=== PATIENT | male | born 1970 | race Caucasian/White ===

== ENCOUNTER 2020-11-01 08:05 | Emergency (ER) | payer OTHER, SELFPAY ==
--- NOTE | 2020-11-01 08:16 | ED.GENADULT ---
HPI - General Adult General Chief complaint: Upper Respiratory Infection Stated complaint: SWOLLEN NECK Time Seen by Provider: 11/01/20 08:16 Source: patient and RN notes reviewed Mode of arrival: ambulatory Limitations: no limitations History of Present Illness HPI narrative: 50-year-old male presents with complaints of sore throat and swelling to right side of neck and face for the past 2 days. Kai reports increase of throat pain and right side of face and neck swelling over the past 24 hours and pain with swallowing. Naproxen and Tylenol without relief. No high fevers, drooling, or throat swelling. Pain is bilateral. Hurts to swallow. Exacerbation factors consist of eating and drinking. No rhinorrhea or nasal congestion. No voice change. No nausea, vomiting, or abdominal pain. Tolerating liquids. Denies chills, dyspnea, difficulty swallowing, jaw pain, dental pain, foreign body sensation, and rash. Remains active. The patient reports he have not been diagnosed with COVID-19. The patient reports he is not waiting for the results of a COVID-19 lab test. The patient reports he do not have chills, weakness, or fatigue. The patient reports he do not have a new or worsening cough or shortness of breath. Denies chest pain. The patient reports he do not have any rhinorrhea, congestion, loss of taste or smell, nausea, vomiting, abdominal pain, and diarrhea. Denies recent traveling. Denies concerns for COVID-19 or exposures been home with limited outdoor exposure except for essential household needs and return home. At this time, patient is not suspected of having COVID-19. Some parts of this dictation were generated by voice recognition software and may contain typographical and/or grammatical inaccuracies. Related Data Home Medications Medication Instructions Recorded Confirmed aspirin [Adult Aspirin EC Low 81 mg PO DAILY 11/01/20 11/01/20 Strength] atorvastatin 40 mg PO DAILY 11/01/20 11/01/20 baclofen 10 mg PO DAILY 11/01/20 11/01/20 clopidogrel 75 mg PO DAILY 11/01/20 11/01/20 cyanocobalamin (vitamin B-12) 500 mcg PO DAILY 11/01/20 11/01/20 [Vitamin B-12] lisinopril-hydrochlorothiazide 1 tablet PO DAILY 11/01/20 11/01/20 Allergies Allergy/AdvReac Type Severity Reaction Status Date / Time No Known Allergies Allergy Mild Verified 11/01/20 08:10 Review of Systems Review of Systems: Narrative: CONSTITUTIONAL: Denies fever, chills, sweats. EYES: Denies visual changes, redness, discharge. ENT: Denies rhinorrhea, congestion, otalgia. Complains of sore throat, RT side facial and neck swelling. CARDIOVASCULAR: Denies chest pain, palpitations, edema. RESPIRATORY: Denies dyspnea, wheezing. cough. GASTROINTESTINAL: Denies abdominal pain, nausea, vomiting, diarrhea. GENITOURINARY: Denies dysuria, hematuria, abnormal discharge. SKIN: Denies rash or itching. MUSCULOSKELETAL: Denies acute back pain, joint pain, or myalgia. NEUROLOGIC: Denies numbness or focal weakness. PSYCHIATRIC: Denies anxiety or depression. All systems reviewed & are unremarkable except as noted in HPI and below. [facility] Past Medical History Medical History (Updated 11/05/20 @ 14:57 by DREW Flores) Ex-smoker for less than 1 year Hypercholesteremia Hypertension PVD (peripheral vascular disease) Stenosis of artery of left lower extremity Surgical History Surgical History (Updated 11/05/20 @ 14:56 by DREW Flores) History of vascular surgery LLE stent placement due to poor circulation 2 successful, 3rd attempted per Kai Family History Family History Mother Patient's mother is in good health Sibling Patient's sister is in good health Patient's brother is in good health Father Patient's father is Other Family history of lung cancer Social History Social History (Updated 11/01/20 @ 08:21 by DREW Flores) S
[2020-11-01 08:17] VITALS: BP 179/99; PULSE 135; RESP 22; TEMP 36.7; O2SAT 100
[2020-11-01] MEDS: KETOROLAC (*BKC) 60 MG/2 ML VIAL IM (08:56)
[2020-11-01 09:05] VITALS: BP 160/94; PULSE 120
== END 2020-11-01 09:27 | disposition home or self-care (01) ==
PROVIDERS: Emergency Provider Nurse Practitioner Family; PCP Internal Medicine Gastroenterology
DX: K04.7 Periapical abscess without sinus (principal); K01.1 Impacted teeth; Z87.891 Personal history of nicotine dependence; E78.00 Pure hypercholesterolemia, unspecified; I10 Essential (primary) hypertension; I25.10 Atherosclerotic heart disease of native coronary artery without angina pectoris; Z95.5 Presence of coronary angioplasty implant and graft
CPT/HCPCS: 87081; 87804; 87880; 96372; 99213; G0463; J1885